=== PATIENT | male | born 1985 | race Caucasian/White ===

== ENCOUNTER → 2021-02-03 10:55 | Outpatient (CLI) | payer OTHER, MEDICAID, SELFPAY ==
[2021-02-03 11:57] LABS: Hematocrit 42.3 % (41-53); Hemoglobin 14.5 g/dL (13.5-17.5); Mean Corpuscular HGB Conc 34.4 % (30-36); Mean Corpuscular Hemoglobin 29.2 PG (26-34); Platelet Count 302 X10^3/uL (150-400); Red Blood Cell Count 4.97 X10^6/uL (4.5-5.9); Red Cell Distribution Width 13.5 % (11.6-14.8); White Blood Cell Count 9.1 X10^3/uL (4.5-11.0)
[2021-02-03 12:23] LABS: Blood Urea Nitrogen 17 mg/dL (9-20); Calcium 10.3 mg/dL (8.4-10.2); Carbon Dioxide 27 mmol/L (22-32); Chloride 103 mmol/L (98-107); Cholesterol 278 mg/dL (140-199); Estimated Glomerular Filt Rate > 60.0 mL/min (>60); Glucose 94 mg/dL (70-100); HDL Cholesterol 46 mg/dL (40-60); HEMOLYSIS < 15 (0-50); LDL Cholesterol Calculated 207 mg/dL (<100); Potassium 4.7 mmol/L (3.4-5.1); Sodium 141 mmol/L (137-145); Triglycerides 125 mg/dL (35-150)
[2021-02-03 12:37] LABS: Vitamin D 25 Hydroxy (D3) 28.7 ng/mL (30.0-100.0)
[2021-02-03 12:53] LABS: TSH w/ Reflex to FT4 1.75 uIU/mL (0.47-4.68)
[2021-02-03 13:10] LABS: Vitamin B12 675 pg/mL (239-931)
== END ==
PROVIDERS: PCP Student in an Organized Health Care Education/Training Program; Referring Provider Student in an Organized Health Care Education/Training Program; Visit Provider Student in an Organized Health Care Education/Training Program
DX: F32.9 Major depressive disorder, single episode, unspecified (principal); Z13.220 Encounter for screening for lipoid disorders; Z72.0 Tobacco use; E55.9 Vitamin D deficiency, unspecified
CPT/HCPCS: 36415; 80048; 80061; 82306; 82607; 84443; 85027

== ENCOUNTER 2021-04-03 14:03 | Emergency (ER) | payer OTHER, MEDICAID, SELFPAY ==
[2021-04-03 14:06] VITALS: BP 126/81; PULSE 81; RESP 18; TEMP 37.1; O2SAT 98
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
--- NOTE | 2021-04-03 15:56 | DI.CT.S_ITS ---
PROCEDURE: CT HEAD/BRAIN WO CON INDICATIONS: trauma TECHNIQUE: Noncontrast 4.5 mm thick angled axial sections acquired from the foramen magnum to the vertex, with coronal and sagittal reformats. For radiation dose reduction, the following was used: automated exposure control, adjustment of mA and/or kV according to patient size. COMPARISON: [facility], CT, CT CERVICAL SPINE WO CON, 04/03/2021, 16:00. [facility], CR, XR KNEE LT 3V, 04/03/2021, 14:11. [facility], CR, XR MANDIBLE MIN 4V, 04/03/2021, 14:11. FINDINGS: Image quality: Mild streak artifact can be seen through the skull base. CSF spaces: Basal cisterns are patent. No extra-axial fluid collections. Ventricles are normal in size and shape. Brain: No midline shift. No intracranial masses or hemorrhage. Silver-white matter interface is normal. Skull and face: Calvarium and visualized facial bones are intact, without suspicious lesions. Sinuses: Visualized sinuses and mastoids are clear. IMPRESSION: No acute intracranial process is seen. No acute intracranial hemorrhage is seen. Dictated by: Ahsan Vera M.D. on 04/03/2021 at 15:15 Approved by: Ahsan Vera M.D. on 04/03/2021 at 15:18
--- NOTE | 2021-04-03 15:56 | DI.CT.S_ITS ---
PROCEDURE: CT CERVICAL SPINE WO CON INDICATIONS: trauma TECHNIQUE: Noncontrast 3 mm thick sections acquired from the skull base to the T4 level. Sagittal and coronal reformats were then constructed. For radiation dose reduction, the following was used: automated exposure control, adjustment of mA and/or kV according to patient size. COMPARISON: [facility], CT, CT HEAD/BRAIN WO CON, 04/03/2021, 16:00. [facility], CR, XR KNEE LT 3V, 04/03/2021, 14:11. [facility], CR, XR MANDIBLE MIN 4V, 04/03/2021, 14:11. FINDINGS: Image quality: Excellent. Bones: No fractures or dislocations. Visualized superior ribs are intact. The visualized portions of the mandible are normal. No TMJ dislocation can be seen. Soft tissues: Prevertebral soft tissues are normal in thickness. No paravertebral hematomas. No apical pneumothoraces. IMPRESSION: Negative for fracture. Dictated by: Ahsan Vera M.D. on 04/03/2021 at 15:18 Approved by: Ahsan Vera M.D. on 04/03/2021 at 15:20
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
[2021-04-03] MEDS: KETOROLAC 30 MG/ML VIAL IM (18:03)
[2021-04-03] MEDS: diazePAM 5 MG TABLET PO (18:10)
== END 2021-04-03 18:31 | disposition home or self-care (01) ==
PROVIDERS: Emergency Provider Emergency Medicine; PCP Student in an Organized Health Care Education/Training Program
DX: S09.90XA Unspecified injury of head, initial encounter (principal); S02.2XXA Fracture of nasal bones, initial encounter for closed fracture; S16.1XXA Strain of muscle, fascia and tendon at neck level, initial encounter; V86.59XA Driver of other special all-terrain or other off-road motor vehicle injured in nontraffic accident, initial encounter
CPT/HCPCS: 70110; 70450; 72125; 73562; 96372; 99284; J1885

== ENCOUNTER → 2021-05-03 12:48 | Outpatient (CLI) | payer OTHER, MEDICAID, SELFPAY ==
--- NOTE | 2021-05-03 12:57 | DI.CT.S_ITS ---
PROCEDURE: CT HEAD/BRAIN WO CON INDICATIONS: Re-eval Concussion and nasal fracture TECHNIQUE: Noncontrast 4.5 mm thick angled axial sections acquired from the foramen magnum to the vertex, with coronal and sagittal reformats. For radiation dose reduction, the following was used: automated exposure control, adjustment of mA and/or kV according to patient size. COMPARISON: [facility], CR, XR MANDIBLE MIN 4V, 04/03/2021, 14:11. FINDINGS: Image quality: Excellent. CSF spaces: Basal cisterns are patent. No extra-axial fluid collections. Ventricles are normal in size and shape. Brain: No midline shift. No intracranial masses or hemorrhage. Silver-white matter interface is normal. 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 Remaining osseous structures intact. Sinuses: Visualized sinuses and mastoids are clear. IMPRESSION: No acute intracranial abnormality. 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 Dictated by: Edy Chan M.D. on 05/03/2021 at 13:00 Approved by: Edy Chan M.D. on 05/03/2021 at 13:02
== END ==
PROVIDERS: PCP Student in an Organized Health Care Education/Training Program; Referring Provider Student in an Organized Health Care Education/Training Program; Visit Provider Student in an Organized Health Care Education/Training Program
DX: S02.2XXK Fracture of nasal bones, subsequent encounter for fracture with nonunion (principal); S09.90XA Unspecified injury of head, initial encounter
CPT/HCPCS: 70450

== ENCOUNTER → 2021-05-11 07:22 | Outpatient (CLI) | payer OTHER, MEDICAID, SELFPAY ==
[2021-05-11 08:15] LABS: Cholesterol 173 mg/dL (140-199); HDL Cholesterol 37 mg/dL (40-60); LDL Cholesterol Calculated 114 mg/dL (<100); Triglycerides 110 mg/dL (35-150)
== END ==
PROVIDERS: PCP Student in an Organized Health Care Education/Training Program; Referring Provider Student in an Organized Health Care Education/Training Program; Visit Provider Student in an Organized Health Care Education/Training Program
DX: E78.00 Pure hypercholesterolemia, unspecified (principal)
CPT/HCPCS: 36415; 80061

== ENCOUNTER 2022-11-09 14:33 | Emergency (ER) | payer OTHER, MEDICAID, SELFPAY ==
[2022-11-09 15:18] VITALS: BP 111/76; PULSE 87; RESP 16; TEMP 36.9; O2SAT 96; BMI 23.3
--- NOTE | 2022-11-09 16:19 | ED_ITS ---
HPI - Dental/Oral <EVERETT Ireland - Last Filed: 11/09/22 16:47> General Chief complaint: Dental/Oral Stated complaint: bite into a burrito and half tooth fell out Time Seen by Provider: 11/09/22 15:59 Source: patient Mode of arrival: Ambulatory History of Present Illness HPI Narrative: This is a 37-year-old male who was eating a burrito this morning and states that his right further back lower molar broke today he thinks it was before or cracked and states that when he was chewing part of this tooth fell out. He endorses having pain but denies any severe stinging nerve pain. He states that he has been using clove oil on it today has helped. He states his dentist is closed for the weekend and he is concerned about pain for the weekend. Denies any discharge, denies any bleeding. Related Data Previous Rx's Medication Instructions Recorded valacyclovir 1 gram tablet 1,000 mg PO DAILY #90 tabs 03/13/22 sertraline 100 mg tablet 100 mg PO DAILY #90 tabs 08/07/22 bupropion HCl 150 mg tablet,12 hr 150 mg PO BID #180 ea 09/04/22 sustained-release hydroxyzine HCl 50 mg tablet 100 mg PO BEDTIME PRN insomnia 09/25/22 #180 tabs tramadol 50 mg tablet 50 mg PO BID PRN pain 3 weeks #42 10/25/22 tabs cyclobenzaprine 10 mg tablet 10 mg PO TID #42 tabs 10/31/22 rosuvastatin 20 mg tablet 20 mg PO QPM #90 tabs 11/05/22 benzocaine 10 % mucosal gel 1 applic mucous membrane BEDTIME 11/09/22 (Anbesol (benzocaine)) #9 grams hydrocodone 5 mg-acetaminophen 325 1 tab PO TID PRN pain #10 tabs 11/09/22 mg tablet Allergies Allergy/AdvReac Type Severity Reaction Status Date / Time Penicillins Allergy Depression Verified 11/09/22 15:22 Review of Systems <EVERETT Ireland - Last Filed: 11/09/22 16:47> Review of Systems ROS Unobtainable: All systems reviewed & are unremarkable except as noted in HPI and below Patient History <EVERETT Ireland - Last Filed: 11/09/22 16:47> Medical History ADHD Allergies Anxiety Chicken pox Chronic back pain Fractures Herpes (~2013) Knee pain Surgical History History of removal of skin mole Family History Mother Prediabetes Kidney stones Gout Breast cancer Arthritis Grandfather Diabetes mellitus History of heart disease Grandmother Diabetes mellitus Parkinson's disease Social History Smoking Status: Current every day smoker Smoking Status: Current every day smoker tobacco type: cigarettes alcohol intake frequency: 0-2 drinks per day Substance Use Type: does not use Exam <EVERETT Ireland - Last Filed: 11/09/22 16:47> Initial Vital Signs Initial Vital Signs: Vital Signs Temperature 98.5 F 11/09/22 15:18 Pulse Rate 87 11/09/22 15:18 Respiratory Rate 16 11/09/22 15:18 Blood Pressure 111/76 11/09/22 15:18 Pulse Oximetry 96 11/09/22 15:18 Oxygen Delivery Method Room Air 11/09/22 15:18 [facility] Head: normal to inspection Mouth: oral mucosae normal, lip normal, tongue normal, salivary ducts normal, oropharynx normal and moist mucous membranes Teeth and gingiva: gingiva normal and abnormal tooth or associated gingiva lower right first molar tender, enamel fractured and dentin fractured Neuro Cranial Nerves: CN's II-XI intact bilaterally, sense of smell intact, PERRL, accommodation normal, EOM intact bilaterally, facial strength normal and tongue midline <Renny Garvin DO - Last Filed: 11/09/22 16:54> Initial Vital Signs Initial Vital Signs: Vital Signs Temperature 98.5 F 11/09/22 15:18 Pulse Rate 87 11/09/22 15:18 Respiratory Rate 16 11/09/22 15:18 Blood Pressure 111/76 11/09/22 15:18 Pulse Oximetry 96 11/09/22 15:18 Oxygen Delivery Method Room Air 11/09/22 15:18 Course <EVERETT Ireland - Last Filed: 11/09/22 16:47> Orders Ordered: Discontinued Medications Hydrocodone Bitart/Acetaminophen (Hydrocodone/Acet 5/325 Tablet) 1 tab PO NOW ONE Stop: 11/09/22 16:14 Last Admin: 11/09/22 16:35 Dose: 1 tab Documented By: DEEDEE Ketorolac Tromethamine (Ketorolac 30 Mg/Ml Vial) 30 mg IM NOW ONE Stop: 11/09/22 16:14 Last Admin: 11/09/22 16:34 Dose: 30 mg Documented By: DEEDEE Vital Signs Vital signs: Vital Signs - 8 hr 11/09/22 15:18 11/09/22 16:43 Temperature 98.5 F Pulse Rate 87 78 Respiratory Rate 16 17 Blood Pressure 111/76 118/78 Pulse Oximetry 96 98 Oxygen Delivery Method Room Air Room Air <Renny Garvin DO - Last Filed: 11/09/22 16:54> Orders Ordered: Discontinued Medications Hydrocodone Bitart/Acetaminophen (Hydrocodone/Acet 5/325 Tablet) 1 tab PO NOW ONE Stop: 11/09/22 16:14 Last Admin: 11/09/22 16:35 Dose: 1 tab Documented By: DEEDEE Ketorolac Tromethamine (Ketorolac 30 Mg/Ml Vial) 30 mg IM NOW ONE Stop: 11/09/22 16:14 Last Admin: 11/09/22 16:34 Dose: 30 mg Documented By: DEEDEE Vital Signs Vital signs: Vital Signs - 8 hr 11/09/22 15:18 11/09/22 16:43 Temperature 98.5 F Pulse Rate 87 78 Respiratory Rate 16 17 Blood Pressure 111/76 118/78 Pulse Oximetry 96 98 Oxygen Delivery Method Room Air Room Air MDM - Dental/Oral <EVERETT Ireland - Last Filed: 11/09/22 16:47> MDM Narrative Medical decision making narrative: Chief Complaint: Broken tooth Multiple etiologies for patient's symptoms considered including, but not limited to: Fractured enamel, fracture dentin, dental decay, dental abscess, dental avulsion I have independently reviewed the patient's vital signs and nursing notes as well as prior records if available. Pertinent records include: On exam, patient has a fracture with a small piece of [place] missing, it is black behind and appears to be decayed. No gingival inflammation, edema, or evidence of abscess. Offered nerve block and cementing however patient opted to go with pain medication and clove oil, will follow-up at his dentist. Social considerations that may affect disposition: none Questions are addressed and there is agreement with the plan and for follow-up. Patient is appropriate for outpatient management. Discharge Plan Departure Patient Disposition: Home Clinical Impression: Pain, dental Fracture of tooth Qualifiers: Encounter type: initial encounter Fracture type: closed Qualified Code(s): S02.5XXA - Fracture of tooth (traumatic), initial encounter for closed fracture Instructions: DI for Dental Pain, Tooth Fracture Activity Restrictions/Additional Instructions: *You have been diagnosed with fracture tooth. Please get your dentist so that they can repair this for you. Another option is low-cost [facility]. Please use the pain pills as needed, take ibuprofen 800 mg starting tomorrow every 8 hours with food and water. Continue with clove oil, that was a good idea. Use a pain pill as needed in addition to these medicines. You can use topical and bizarre as well. I am sorry for your pain, I wish you the best of luck, hopefully this gets taken care of quickly. [facility] [address] [place] [address] Open ? Closes 5PM [facility] [address] [address], [place] [address] Closed from 12p-1p [facility] [place] [address], [place] [address] Appointments: [email or web address] *What to do: *Please continue to take your regular medications as directed. [x ] New medication prescriptions sent to your pharmacy: [ [facility]] [ ] New medication written as a paper prescription [ ] No new medications given *Please follow up with your primary care provider in 2-3 days, call for an appointment. Let them know you were seen in the Emergency Department and that we asked that you be seen for follow-up. We will electronically transmit a record of today's note if your PCP is in our system *If you do not have a primary care provider please contact [phone] to establish care with one of the [facility] primary care providers. *Return to Emergency Department if you should have any new, worsening, or concerning symptoms, such as [fever greater than 101F, chills, worsening pain, persistent vomiting or other bothersome symptoms]. Prescriptions: New Anbesol (benzocaine) 10 % gel 1 applic mucous membrane BEDTIME Qty: 9 0RF hydrocodone-acetaminophen 5-325 mg tablet 1 tab PO TID PRN (Reason: pain) Qty: 10 0RF No Action valacyclovir 1 gram tablet 1,000 mg PO DAILY Qty: 90 0RF bupropion HCl 150 mg tablet sustained-release 12 hr 150 mg PO BID Qty: 180 1RF hydroxyzine HCl 50 mg tablet 100 mg PO BEDTIME PRN (Reason: insomnia) Qty: 180 3RF cyclobenzaprine 10 mg tablet 10 mg PO TID Qty: 42 0RF rosuvastatin 20 mg tablet 20 mg PO QPM Qty: 90 3RF sertraline 100 mg tablet 100 mg PO DAILY Qty: 90 3RF tramadol 50 mg tablet 50 mg PO BID PRN (Reason: pain) 21 Days Qty: 42 0RF Referrals: Gage Lechuga MD [Primary Care Provider] - Stand Alone Forms: Patient Portal/API <Renny Garvin DO - Last Filed: 11/09/22 16:54> [facility]: Dr Garvin Co-Sign Statement: I was available for consultation during this patient's emergency department visit. This chart is signed by myself for administrative purposes only. I did not have direct contact with this patient during this visit. They were seen independently by the APC.
[2022-11-09] MEDS: KETOROLAC 30 MG/ML VIAL IM (16:34)
[2022-11-09] MEDS: HYDROCODONE/ACET 5/325 TABLET 1 TAB PO (16:35)
--- NOTE | 2022-11-09 16:40 | PC.NURSE ---
Right lower molar fracture
[2022-11-09 16:43] VITALS: BP 118/78; PULSE 78; RESP 17; O2SAT 98
== END 2022-11-09 16:44 | disposition home or self-care (01) ==
PROVIDERS: Emergency Provider Nurse Practitioner Critical Care Medicine; PCP Student in an Organized Health Care Education/Training Program
DX: S02.5XXA Fracture of tooth (traumatic), initial encounter for closed fracture (principal); X58.XXXA Exposure to other specified factors, initial encounter
CPT/HCPCS: 96372; 99283; J1885

== ENCOUNTER → 2022-11-13 10:45 | Outpatient (CLI) | payer OTHER, MEDICAID, SELFPAY ==
--- NOTE | 2022-11-13 10:48 | DI.RAD.S_ITS ---
PROCEDURE: XR HIP W PEL IF DONE RT 2V INDICATIONS: Right hip pain TECHNIQUE: AP pelvis with lateral view(s) of the right hip(s). COMPARISON: None. FINDINGS: Bones: No fractures or dislocations. Pelvic ring appears intact. No suspicious bony lesions. No significant joint space narrowing. Soft tissues: The visualized bowel gas pattern is normal. No suspicious soft tissue calcifications. IMPRESSION: Normal right hip radiographs. No significant degenerative change. Dictated by: Ronald Wei M.D. on 11/13/2022 at 14:53 Approved by: Ronald Wei M.D. on 11/13/2022 at 14:54
== END ==
PROVIDERS: PCP Student in an Organized Health Care Education/Training Program; Referring Provider Anesthesiology; Visit Provider Anesthesiology
DX: M25.551 Pain in right hip (principal); M54.16 Radiculopathy, lumbar region; M54.50 Low back pain, unspecified; M54.6 Pain in thoracic spine; G89.29 Other chronic pain
CPT/HCPCS: 73502; 99214

== ENCOUNTER → 2022-12-17 13:37 | Outpatient (CLI) | payer OTHER, MEDICAID, SELFPAY ==
--- NOTE | 2022-12-17 13:38 | DI.MRI.S_ITS ---
PROCEDURE: MR LUMBAR SPINE WO CON INDICATIONS: Lumbar radiculopathy s/p fall TECHNIQUE: Noncontrast sagittal T1 spin echo and T2 fast echo, sagittal STIR, and T2 fast spin echo through the lumbar spine. In cases with scoliosis, additional coronal T2 fast spin echo may be performed. COMPARISON: [facility], CR, XR LUMBAR SPINE 2 OR 3 VIEWS, 09/04/2022, 19:50. FINDINGS: Image quality: Excellent. Alignment and Curvature: There is normal bony alignment. Bone Marrow: Marrow is of normal overall signal. No acute vertebral body compression fractures. Spinal Cord: Conus medullaris terminates at the L1 level. Visualized cord demonstrates normal signal and size. Paraspinous Soft Tissues: No paravertebral masses. T12-L1: No significant disc bulge. The foramina and central canal are patent. L1-L2: No significant disc bulge. The foramina and central canal are patent. L2-L3: No significant disc bulge. The foramina and central canal are patent. L3-L4: No significant disc bulge. The foramina and central canal are patent. L4-L5: No significant disc bulge. The foramina and central canal are patent. L5-S1: Diffuse disc bulge with an annular tear and small central protrusion. The foramina and central canal are patent. IMPRESSION: 1. L5-S1 small annular tear with small central protrusion, otherwise no significant degenerative changes at this or other levels. 2. No acute traumatic abnormality. Dictated by: Zack Evans M.D. on 12/17/2022 at 14:19 Approved by: Zack Evans M.D. on 12/17/2022 at 14:23
== END ==
PROVIDERS: PCP Student in an Organized Health Care Education/Training Program; Referring Provider Anesthesiology; Visit Provider Anesthesiology
DX: G89.29 Other chronic pain (principal); M25.559 Pain in unspecified hip; M54.16 Radiculopathy, lumbar region; M54.9 Dorsalgia, unspecified; M51.37 Other intervertebral disc degeneration, lumbosacral region; M51.27 Other intervertebral disc displacement, lumbosacral region
CPT/HCPCS: 72148

== ENCOUNTER → 2023-02-26 13:28 | Outpatient (CLI) | payer OTHER, MEDICAID, SELFPAY ==
--- NOTE | 2023-02-26 13:29 | DI.MG.S_ITS ---
MALE BILATERAL DIGITAL DIAGNOSTIC MAMMOGRAM 3D/2D: 02/26/2023 CLINICAL: Baseline. Growing axillary lump with chest swelling. No prior exams were available for comparison. No significant masses, calcifications, or other findings are seen in either breast. No abnormality which corresponds with the palpable abnormality is seen. IMPRESSION: INCOMPLETE: NEEDS ADDITIONAL IMAGING EVALUATION Ultrasound is recommended. US will be performed and dictated separately. This exam was interpreted at Station ID: [id number]. NOTE: For mammograms, a report in lay terms will be sent to the patient. Approximately 15% of breast malignancies will not be visualized mammographically. In the management of a palpable breast mass, a negative mammogram must not discourage biopsy of a clinically suspicious lesion. Electronically Signed By: Zack Evans M.D. acr/:02/26/2023 14:50:16 ACR BI-RADS Category 0: Incomplete [id number]
--- NOTE | 2023-02-26 13:29 | DI.US.S_ITS ---
LIMITED ULTRASOUND OF LEFT BREAST AND AXILLA: 02/26/2023 CLINICAL: Palpable left axilla lump. Comparison is made to exam dated: 02/26/2023 mammogram - [facility]. Color flow and Doppler ultrasound of the left breast axilla were performed. No significant abnormalities were seen sonographically in the left axilla. No abnormality which corresponds with the palpable abnormality is seen. IMPRESSION: NEGATIVE There is no sonographic evidence of malignancy. There is no abnormality seen in the left breast to correspond with the palpable abnormality in the axilla, however, clinical followup is recommended. This exam was interpreted at Station ID: [id number]. Electronically Signed By: Zack Evans M.D. acr/:02/26/2023 14:52:54 letter sent: Clinical Evaluation Ultrasound BI-RADS: 1 Negative
== END ==
PROVIDERS: PCP Family Medicine; Referring Provider Family Medicine; Visit Provider Family Medicine
DX: R92.2 Inconclusive mammogram; N63.32 Unspecified lump in axillary tail of the left breast
CPT/HCPCS: 76882; 77066; G0279

== ENCOUNTER 2023-04-10 13:30 | Outpatient (RCR) | payer OTHER, MEDICAID, SELFPAY ==
--- NOTE | 2023-03-21 11:23 | PT.OIE ---
Current Diagnoses Other chronic pain (03/21/23) Radiculopathy, lumbar region (03/21/23) Lumbago with sciatica, right side (03/21/23) Pain in thoracic spine (03/21/23) Past Medical History (Last Reviewed 02/22/23 @ 08:44 by Royal Hansen DO) ADHD Allergies Anxiety Axillary adenitis Chicken pox Chronic back pain Fractures Herpes (~2013) Hip pain Knee pain Low back pain Lumbar radiculopathy Myofascial pain Thoracic back pain Past Surgical History (Last Reviewed 02/22/23 @ 08:44 by Royal Hansen DO) History of removal of skin mole Visit Care Team Role Provider Type Royal Hansen DO Attending Provider Physician Family Provider Primary Care Provider Referring Provider Specialty: Family Practice Address: [address] [place] [address], [facility] Email: [email or web address] Physical Therapy Initial Evaluation PT-OP-A Visit Information Start: 03/20/23 16:50 Freq: Status: Active Protocol: Document 03/21/23 11:23 AM (Rec: 03/21/23 12:55 AM [id number]) Out-Patient Physical Therapy Visit Information Visit Information Visit Type Initial Evaluation Visit Start Time 11:33 Visit Stop Time 12:15 Total Visit Minutes 43 Visit Number 1 Number of ALPINE PATROLLER Visits 0 Evaluation Information Evaluation Date 03/21/23 PT-OP-B Current Condition Start: 03/20/23 16:50 Freq: Status: Active Protocol: Document 03/21/23 11:23 AM (Rec: 03/21/23 12:55 AM [id number]) Current Condition History of Current Condition Onset Date 1 year ago, worsened in Aug Current Complaints Pt reports that pain is primarily at mid low back currently. History of Current Condition Pt reports pain is primarily at mid low back. Pt reports that he has radiating pain to R LE, with numbness occasionally at toes. Pt reports R LE symptoms are primarily at night. Pt reports that he has had low back pain for awhile, though in Aug he slipped on ice on the stairs and injured his back then. 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 He has difficulty working now, though works when able. 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 or being in the car is hard because of bouncing Functional Limitations- Recreation/ Pt unable to backpack hike Hobbies PT-OP-C Subjective Start: 03/20/23 16:50 Freq: Status: Active Protocol: Document 03/21/23 11:23 AM (Rec: 03/21/23 12:55 AM [id number]) OP-PT Subjective Patient Comments Patient Comments Pt reports symptoms have stayed about the same, though he does have exacerbation of symptoms with an lifting Patient Reported Progress Same Patient Questionnaires Lower Extremity Functional Scale LEFS Score 38 LEFS Impairment 40 to 59% Impaired (Score 32- 47) Oswestry Low Back Index Oswestry Score 21 Oswestry Impairment 20 to 39% Impaired (Score 20- 39) OP-PT Pain Assessment Pain Assessment Grid Paper Pain Assessment Grid Completed Yes Location Back Pain Location Details Central low back pain Intensity 5 Scale Used Numeric (0 - 10) Description Aching,Radiating,Spasm Description- Other 10/10, 6-8/10 typical Frequency Constant Radiating Location R lateral and posterior thigh. Symptoms go to his R toes ( numbness) rarely Pain Aggravating Factors ADL's,Activity,Standing, Sitting Pain Alleviating Factors Cold Other Pain Alleviating Factors Ice helps more than heat, walking helps Patient Stated Pain Goal To be able to return to work full-chelle and be able to backpack Home Pain Medication Use Pain Medications Used Yes: tylenol Home Pain Medication Frequency sometimes at night PT-OP-F Manual Assessment Start: 03/20/23 16:50 Freq: Status: Active Protocol: Document 03/21/23 11:23 AM (Rec: 03/21/23 12:55 AM [id number]) Manual Assessments Soft Tissue Assessment Soft Tissue Mobility Assessment Tenderness, stiffness at lumbar paraspinals; hamstring stiffness at 30 deg on 90/90 test PT-OP-G Mobility & Gait Start: 03/20/23 16:50 Freq: Status: Active Protocol: Document 03/21/23 11:23 AM (Rec: 03/21/23 12:55 AM [id number]) OP Gait Assessment Gait Gait Assistance Required: Independent Assistive Devices Assistive Device None Orthotic/Prosthetic Devices or Brace: No Gait Deviations General Gait Pattern Within Normal Limits PT-OP-H Neuro Start: 03/20/23 16:50 Freq: Status: Active Protocol: Document 03/21/23 11:23 AM (Rec: 03/21/23 12:55 AM [id number]) Sensation Evaluation Gross Sensation Gross Sensation WNL PT-OP-J Posture/Palpation/Skin Start: 03/20/23 16:50 Freq: Status: Active Protocol: Document 03/21/23 11:23 AM (Rec: 03/21/23 12:55 AM [id number]) Posture Evaluation Position Standing Evaluation View Posterior L-Spine Posture Flattened,Decreased Lordosis Palpation Assessment Location One Palpation Location lumbar paraspinals, QL Palpation Findings Soft Tissue Tightness,Muscle Guarding,Tenderness PT-OP-K Range of Motion Start: 03/20/23 16:50 Freq: Status: Active Protocol: Document 03/21/23 11:23 AM (Rec: 03/21/23 12:55 AM [id number]) Lumbar Spine Range of Motion Lumbar Spine Active Percentage Testing Position Standing Flexion 50 Extension 50 Rotation Left 50 Rotation Right 50 Lateral Flexion Left 50 Lateral Flexion Right 50 ROM Limitations Soft Tissue Tightness,Pain Comments Measurement from finger tips to floor, with knees extended Flexion: 12.5 inches R lateral flexion: 19.5 inches L lateral flexion: 18.5 inches Extensio: 20 degrees Knee Goniometric Range of Motion Knee Left Comments Hamstring 90/90: 30 deg Right Comments Hamstring 90/90: 30 deg PT-OP-L Special Tests Start: 03/20/23 16:50 Freq: Status: Active Protocol: Document 03/21/23 11:23 AM (Rec: 03/21/23 12:55 AM [id number]) Special Tests Lumbar Spine Special Tests Prone Press Up Test Results x10, Decreased stiffness and pain following Comments Supine lumbar flexion-no change PT-OP-M Strength Start: 03/20/23 16:50 Freq: Status: Active Protocol: Document 03/21/23 11:23 AM (Rec: 03/21/23 12:55 AM [id number]) Hip Strength Hip Manual Muscle Testing Left Flexion (L2) 4 Good Extension (S1) 4+ Good+ Abduction 4- Good- Adduction 4- Good- External Rotation 4- Good- Internal Rotation 3+ Fair+ Right Flexion (L2) 4 Good Extension (S1) 4+ Good+ Abduction 4- Good- Adduction 4- Good- External Rotation 4- Good- Internal Rotation 3+ Fair+ Comments IR testing produced R hip discomfort Knee Strength Knee Manual Muscle Testing Left Flexion (S2) 5 Normal Extension (L3) 5 Normal Right Flexion (S2) 5 Normal Extension (L3) 5 Normal PT-OP-Q Treatments Start: 03/20/23 16:50 Freq: Status: Active Protocol: Document 03/21/23 11:23 AM (Rec: 03/21/23 12:57 AM [id number]) Therapeutic Exercises Prone Exercises 1 Prone Exercise Name Prone press-up Reps/Minutes x10 Standing Exercises 1 Standing Exercise Name Hamstring stretch Side bilateral Reps/Minutes x30 sec Other Exercises 1 Other Exercise Name Kneeling hip flexor stretch Side bilateral Reps/Minutes 30 sec ea PT-OP-T Assessment and Plan Start: 03/20/23 16:50 Freq: Status: Active Protocol: Document 03/21/23 11:23 AM (Rec: 03/21/23 12:55 AM [id number]) Physical Therapy Assessment Rehab Potential Rehabilitation Potential Excellent Evaluation Complexity Number of Personal Factors/Comorbidities 1-2 Number of Body Systems Impaired 1-2 Clinical Presentation at Evaluation Stable Impairments Impairments Activity Tolerance,Functional Activities,Functional Mobility ,Gait,Pain,Posture,ROM,Soft Tissue Mobility,Strength Goals Seven Impairment Radicular symptoms Impairment Pt with radicular symptoms from lateral hip to toes. Short Term Goal (STG) Pt without symptoms below knee . STG Duration 3 weeks Insurance Defense Attorney Goal (LTG) Pt with out radicular symptoms at R LE LTG Duration 6 weeks Six Impairment Sleep deficits Impairment Pt reports difficulty with sleep secondary to R radicular symptoms Insurance Defense Attorney Goal (LTG) Pt able to sleep without disruption secondary to pain. LTG Duration 6 weeks Five Impairment Trunk mobility Impairment Pt demonstates trunk mobility restrictions, restricted by 50 % in each direction. Short Term Goal (STG) Pt able to demonstrate improved trunk mobility, restricted 25% or less in each direction. STG Duration 3 weeks Insurance Defense Attorney Goal (LTG) Pt with full functional trunk mobility. LTG Duration 6 weeks Four Impairment Work restrictions Impairment Pt with difficulty working secondary to pain. Short Term Goal (STG) Pt able to participate in 50% of typical work tasks, without modification secondary to pain. STG Duration 3 weeks Senior Care Goal (LTG) Pt able to participate in 75% of work tasks without modification secondary to pain . LTG Duration 6 weeks Three Impairment HEP Impairment Pt unsure of appropriate exercises to reduce pain. Insurance Defense Attorney Goal (LTG) Pt independent with HEP LTG Duration 6 weeks Two Impairment LEFS score Impairment Pt scored 38/80 on LEFS Senior Care Goal (LTG) Pt will score 60/80 on LEFS LTG Duration 6 weeks One Impairment Pain Impairment Pt with reported pain at 10/10 at worst. Short Term Goal (STG) Pt with reported pain at 5/10 at worst. STG Duration 3 weeks Senior Care Goal (LTG) Pt with reported pain at 2/10 at worst LTG Duration 6 weeks Assessment Summary Assessment Feroz Marin presents to PT with history of low back pain, which worsened in 08/2022. Pt with history of R radicular symptoms, that are typically at night. Pt with difficulty working and with recreational activities secondary to persistent pain. Pt demonstrates 50% restriction in trunk mobility in all directions. Pt demonstrated reduction of pain and improved mobility following prone press-ups today. Pt without change in symptoms with lumbar flexion in supine. Pt muscle retrictions at hamstrings and hip flexors. Pt demonstrates tenderness at [place] lumbar paraspinals and QL with palpation. Pt educated on seated posture with lumbar support at all times. Pt without increase in pain with HEP given today, though encouraged to avoid painful ranges and stop exercise if peripheral symptoms worsen with exercises. Pt would benefit from continued PT to progress trunk mobility and strength, to improve tolerance to functional and recreational tasks. Physical Therapy Plan Frequency and Duration Frequency of Treatment 2x/Week Duration of treatment (weeks) 6 Plan of Care Start Date 03/21/23 Plan of Care End Date 05/02/23 Therapeutic Interventions Therapeutic Interventions Balance Training,Gait Training ,Home Exercise Program,Joint Mobilizations,Manual Therapy, Neuromuscular Re-education, Patient/Caregiver Education, Self-Care/Home Management,Soft Tissue Mobilization,Taping, Therapeutic Activities, Therapeutic Exercises Modalities Cold Pack/Ice Massage,Electric Stimulation,Hot Packs, Ultrasound Next Visit Focus/Plan Next Note Type Treatment Note Next Visit Plan Progress trunk mobility. Add manual techniques to decrease soft tissue restrictions. Progress towards functional strengthening as tolerated
--- NOTE | 2023-03-26 09:48 | PT.OTN ---
Current Diagnoses Other chronic pain (03/26/23) Radiculopathy, lumbar region (03/26/23) Lumbago with sciatica, right side (03/26/23) Pain in thoracic spine (03/26/23) Physical Therapy Treatment Note PT-OP-A Visit Information Start: 03/20/23 16:50 Freq: Status: Active Protocol: Document 03/26/23 09:48 AM (Rec: 03/26/23 13:33 AM [id number]) Out-Patient Physical Therapy Visit Information Visit Information Visit Type Treatment Note Visit Start Time 09:48 Visit Stop Time 10:28 Total Visit Minutes 40 Visit Number 2 Number of PR[employer]ING [employer] CLOTH TENDER Visits 0 PT-OP-B Current Condition Start: 03/20/23 16:50 Freq: Status: Active Protocol: Document 03/26/23 09:48 AM (Rec: 03/26/23 13:33 AM [id number]) Current Condition History of Current Condition Onset Date 1 year ago, worsened in Aug Current Complaints Pt reports that pain is primarily at mid low back currently. History of Current Condition Pt reports pain is primarily at mid low back. Pt reports that he has radiating pain to R LE, with numbness occasionally at toes. Pt reports R LE symptoms are primarily at night. Pt reports that he has had low back pain for awhile, though in Aug he slipped on ice on the stairs and injured his back then. Prior Treatments and Tests Herniated disc on MRI, trigger point injections in September (no help) Future Testing and Treatments Planned F/u with referring provider post-PT PT-OP-C Subjective Start: 03/20/23 16:50 Freq: Status: Active Protocol: Document 03/26/23 09:48 AM (Rec: 03/26/23 13:33 AM [id number]) OP-PT Subjective Patient Comments Patient Comments Pt reports My back is pretty good today. Pt reports pain at 2-3/10. Pt reports that his night symptoms have improved and he is no longer having pain into his glute. PT-OP-F Manual Assessment Start: 03/20/23 16:50 Freq: Status: Active Protocol: Document 03/21/23 11:23 AM (Rec: 03/21/23 12:55 AM [id number]) Manual Assessments Soft Tissue Assessment Soft Tissue Mobility Assessment Tenderness, stiffness at lumbar paraspinals; hamstring stiffness at 30 deg on 90/90 test PT-OP-G Mobility & Gait Start: 03/20/23 16:50 Freq: Status: Active Protocol: Document 03/21/23 11:23 AM (Rec: 03/21/23 12:55 AM [id number]) OP Gait Assessment Gait Gait Assistance Required: Independent Assistive Devices Assistive Device None Orthotic/Prosthetic Devices or Brace: No Gait Deviations General Gait Pattern Within Normal Limits PT-OP-H Neuro Start: 03/20/23 16:50 Freq: Status: Active Protocol: Document 03/21/23 11:23 AM (Rec: 03/21/23 12:55 AM [id number]) Sensation Evaluation Gross Sensation Gross Sensation WNL PT-OP-J Posture/Palpation/Skin Start: 03/20/23 16:50 Freq: Status: Active Protocol: Document 03/21/23 11:23 AM (Rec: 03/21/23 12:55 AM [id number]) Posture Evaluation Position Standing Evaluation View Posterior L-Spine Posture Flattened,Decreased Lordosis Palpation Assessment Location One Palpation Location lumbar paraspinals, QL Palpation Findings Soft Tissue Tightness,Muscle Guarding,Tenderness PT-OP-K Range of Motion Start: 03/20/23 16:50 Freq: Status: Active Protocol: Document 03/21/23 11:23 AM (Rec: 03/21/23 12:55 AM [id number]) Lumbar Spine Range of Motion Lumbar Spine Active Percentage Testing Position Standing Flexion 50 Extension 50 Rotation Left 50 Rotation Right 50 Lateral Flexion Left 50 Lateral Flexion Right 50 ROM Limitations Soft Tissue Tightness,Pain Comments Measurement from finger tips to floor, with knees extended Flexion: 12.5 inches R lateral flexion: 19.5 inches L lateral flexion: 18.5 inches Extensio: 20 degrees Knee Goniometric Range of Motion Knee Left Comments Hamstring 90/90: 30 deg Right Comments Hamstring 90/90: 30 deg PT-OP-L Special Tests Start: 03/20/23 16:50 Freq: Status: Active Protocol: Document 03/21/23 11:23 AM (Rec: 03/21/23 12:55 AM [id number]) Special Tests Lumbar Spine Special Tests Prone Press Up Test Results x10, Decreased stiffness and pain following Comments Supine lumbar flexion-no change PT-OP-M Strength Start: 03/20/23 16:50 Freq: Status: Active Protocol: Document 03/21/23 11:23 AM (Rec: 03/21/23 12:55 AM [id number]) Hip Strength Hip Manual Muscle Testing Left Flexion (L2) 4 Good Extension (S1) 4+ Good+ Abduction 4- Good- Adduction 4- Good- External Rotation 4- Good- Internal Rotation 3+ Fair+ Right Flexion (L2) 4 Good Extension (S1) 4+ Good+ Abduction 4- Good- Adduction 4- Good- External Rotation 4- Good- Internal Rotation 3+ Fair+ Comments IR testing produced R hip discomfort Knee Strength Knee Manual Muscle Testing Left Flexion (S2) 5 Normal Extension (L3) 5 Normal Right Flexion (S2) 5 Normal Extension (L3) 5 Normal PT-OP-Q Treatments Start: 03/20/23 16:50 Freq: Status: Active Protocol: Document 03/26/23 09:48 AM (Rec: 03/26/23 13:33 AM [id number]) Therapeutic Exercises Supine Exercises 1 Supine Exercise Name LTR Side bilateral Reps/Minutes x1 min Comments added to HEP Prone Exercises 2 Prone Exercise Name [place] Reps/Minutes x10 Comments added to HEP 1 Prone Exercise Name Prone press-up Reps/Minutes 2x10 Sitting Exercises 2 Sitting Exercise Name Lat pull down Side bilateral Resistance 60# Equipment Used machine Reps/Minutes 2x10 1 Sitting Exercise Name Seated row Side bilateral Resistance 60# Equipment Used machine Reps/Minutes 2x10 Standing Exercises 2 Standing Exercise Name Cable trunk isometric Side bilateral Resistance 20# Equipment Used cable Reps/Minutes 3x5 steps each direction Comments Sideways and fwd/back Other Exercises 1 Other Exercise Name Kneeling hip flexor stretch Side bilateral Equipment Used knee on blue foam for comfort Reps/Minutes 1 min ea side Manual Therapy Treatment Soft Tissue Mobilization 1 Body Location Low back paraspinals and QL Mobilization Type Myofascial Release Intensity/Depth Deep Body Position Prone Comments L QL more tender than R PT-OP-T Assessment and Plan Start: 03/20/23 16:50 Freq: Status: Active Protocol: Document 03/26/23 09:48 AM (Rec: 03/26/23 13:33 AM [id number]) Physical Therapy Assessment Impairments Impairments Activity Tolerance,Functional Activities,Functional Mobility ,Gait,Pain,Posture,ROM,Soft Tissue Mobility,Strength Goals Seven Impairment Radicular symptoms Impairment Pt with radicular symptoms from lateral hip to toes. Short Term Goal (STG) Pt without symptoms below knee . STG Duration 3 weeks Field Supervisor [employer] Goal (LTG) Pt with out radicular symptoms at R LE LTG Duration 6 weeks Six Impairment Sleep deficits Impairment Pt reports difficulty with sleep secondary to R radicular symptoms Care Home Goal (LTG) Pt able to sleep without disruption secondary to pain. LTG Duration 6 weeks Five Impairment Trunk mobility Impairment Pt demonstates trunk mobility restrictions, restricted by 50 % in each direction. Short Term Goal (STG) Pt able to demonstrate improved trunk mobility, restricted 25% or less in each direction. STG Duration 3 weeks Care Home Goal (LTG) Pt with full functional trunk mobility. LTG Duration 6 weeks Four Impairment Work restrictions Impairment Pt with difficulty working secondary to pain. Short Term Goal (STG) Pt able to participate in 50% of typical work tasks, without modification secondary to pain. STG Duration 3 weeks Care Home Goal (LTG) Pt able to participate in 75% of work tasks without modification secondary to pain . LTG Duration 6 weeks Three Impairment HEP Impairment Pt unsure of appropriate exercises to reduce pain. Care Home Goal (LTG) Pt independent with HEP LTG Duration 6 weeks Two Impairment LEFS score Impairment Pt scored 38/80 on LEFS Care Home Goal (LTG) Pt will score 60/80 on LEFS LTG Duration 6 weeks One Impairment Pain Impairment Pt with reported pain at 10/10 at worst. Short Term Goal (STG) Pt with reported pain at 5/10 at worst. STG Duration 3 weeks Care Home Goal (LTG) Pt with reported pain at 2/10 at worst LTG Duration 6 weeks Progress Towards Goals Progress Towards Goals Progressing Toward Goals Assessment Summary Assessment Pt tolerated tx session well today without increase in symptoms. Pt with trigger points along L QL with STM. Pt demonstrates improving lumbar extension with mobility. Pt tolerated strengthening well, with cues for trunk stabilization throughout. Pt would benefit form continued PT to progress trunk strength and mobility as tolerated. Physical Therapy Plan Frequency and Duration Frequency of Treatment 2x/Week Duration of treatment (weeks) 6 Plan of Care Start Date 03/21/23 Plan of Care End Date 05/02/23 Therapeutic Interventions Therapeutic Interventions Balance Training,Gait Training ,Home Exercise Program,Joint Mobilizations,Manual Therapy, Neuromuscular Re-education, Patient/Caregiver Education, Self-Care/Home Management,Soft Tissue Mobilization,Taping, Therapeutic Activities, Therapeutic Exercises Modalities Cold Pack/Ice Massage,Electric Stimulation,Hot Packs, Ultrasound Next Visit Focus/Plan Next Note Type Treatment Note Next Visit Plan Progress trunk mobility and functional strength as tolerated, add deadlifts, weighted squats, overhead press as tolerated
--- NOTE | 2023-04-08 10:21 | PT-OP ANOTE ---
Pt did not show for appt. Mother answered phone when called. Mom reported was a busy morning and lost track time. She wanted reschedule appt today and will call back to do so, confirmed next appt on 04/10.
--- NOTE | 2023-04-10 13:33 | PT.OTN ---
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 History of Current Condition Pt reports pain is primarily at mid low back. Pt reports that he has radiating pain to R LE, with numbness occasionally at toes. Pt reports R LE symptoms are primarily at night. Pt reports that he has had low back pain for awhile, though in Aug he slipped on ice on the stairs and injured his back then. Prior Treatments and Tests Herniated disc on MRI, trigger point injections in September (no help) Future Testing and Treatments Planned F/u with referring provider post-PT PT-OP-C Subjective Start: 03/20/23 16:50 Freq: Status: Active Protocol: Document 04/10/23 13:33 AM (Rec: 04/10/23 13:39 AM [id number]) OP-PT Subjective Patient Comments Patient Comments Pt reports pain is about the same it comes and goes. Pt denies pain down his leg. Pt reports pain at 5/10 today. Pt reports pain increasing to 9/ 10 at the worst in the morning or with too much strain at work. PT-OP-F Manual Assessment Start: 03/20/23 16:50 Freq: Status: Active Protocol: Document 03/21/23 11:23 AM (Rec: 03/21/23 12:55 AM [id number]) Manual Assessments Soft Tissue Assessment Soft Tissue Mobility Assessment Tenderness, stiffness at lumbar paraspinals; hamstring stiffness at 30 deg on 90/90 test PT-OP-G Mobility & Gait Start: 03/20/23 16:50 Freq: Status: Active Protocol: Document 03/21/23 11:23 AM (Rec: 03/21/23 12:55 AM [id number]) OP Gait Assessment Gait Gait Assistance Required: Independent Assistive Devices Assistive Device None Orthotic/Prosthetic Devices or Brace: No Gait Deviations General Gait Pattern Within Normal Limits PT-OP-H Neuro Start: 03/20/23 16:50 Freq: Status: Active Protocol: Document 03/21/23 11:23 AM (Rec: 03/21/23 12:55 AM [id number]) Sensation Evaluation Gross Sensation Gross Sensation WNL PT-OP-J Posture/Palpation/Skin Start: 03/20/23 16:50 Freq: Status: Active Protocol: Document 03/21/23 11:23 AM (Rec: 03/21/23 12:55 AM [id number]) Posture Evaluation Position Standing Evaluation View Posterior L-Spine Posture Flattened,Decreased Lordosis Palpation Assessment Location One Palpation Location lumbar paraspinals, QL Palpation Findings Soft Tissue Tightness,Muscle Guarding,Tenderness PT-OP-K Range of Motion Start: 03/20/23 16:50 Freq: Status: Active Protocol: Document 04/10/23 13:33 AM (Rec: 04/10/23 13:42 AM [id number]) Lumbar Spine Range of Motion Lumbar Spine Active Percentage Flexion 50 Extension 25 Rotation Left 50 Rotation Right 50 Lateral Flexion Left 50 Lateral Flexion Right 50 Comments Flexion: 9 inches R lateral flexion : 20 inches L lateral flexion: 18.5 inches Extension: 30 deg PT-OP-L Special Tests Start: 03/20/23 16:50 Freq: Status: Active Protocol: Document 03/21/23 11:23 AM (Rec: 03/21/23 12:55 AM [id number]) Special Tests Lumbar Spine Special Tests Prone Press Up Test Results x10, Decreased stiffness and pain following Comments Supine lumbar flexion-no change PT-OP-M Strength Start: 03/20/23 16:50 Freq: Status: Active Protocol: Document 03/21/23 11:23 AM (Rec: 03/21/23 12:55 AM [id number]) Hip Strength Hip Manual Muscle Testing Left Flexion (L2) 4 Good Extension (S1) 4+ Good+ Abduction 4- Good- Adduction 4- Good- External Rotation 4- Good- Internal Rotation 3+ Fair+ Right Flexion (L2) 4 Good Extension (S1) 4+ Good+ Abduction 4- Good- Adduction 4- Good- External Rotation 4- Good- Internal Rotation 3+ Fair+ Comments IR testing produced R hip discomfort Knee Strength Knee Manual Muscle Testing Left Flexion (S2) 5 Normal Extension (L3) 5 Normal Right Flexion (S2) 5 Normal Extension (L3) 5 Normal PT-OP-Q Treatments Start: 03/20/23 16:50 Freq: Status: Active Protocol: Document 04/10/23 13:33 AM (Rec: 04/10/23 15:14 AM [id number]) Therapeutic Exercises Supine Exercises 1 Supine Exercise Name LTR Side bilateral Reps/Minutes x1 min Comments added to HEP Prone Exercises 1 Prone Exercise Name Prone press-up Reps/Minutes 2x10 Standing Exercises QL stretch Standing Exercise Name QL stretch Reps/Minutes 2x20 sec Comments Stand with L hip touching wall and lean away from wall with arm overhead Other Exercises 1 Other Exercise Name Kneeling hip flexor stretch Side bilateral Equipment Used knee on blue foam for comfort Reps/Minutes 1 min ea side Comments With L arm overhead for QL stretch Manual Therapy Treatment Soft Tissue Mobilization 1 Body Location Low back paraspinals and L QL Mobilization Type Myofascial Release Intensity/Depth Deep Body Position Prone Comments L QL more tender than R Showed pt self QL massage for home with tennis ball against wall PT-OP-T Assessment and Plan Start: 03/20/23 16:50 Freq: Status: Active Protocol: Document 04/10/23 13:33 AM (Rec: 04/10/23 13:39 AM [id number]) Physical Therapy Assessment Impairments Impairments Activity Tolerance,Functional Activities,Functional Mobility ,Gait,Pain,Posture,ROM,Soft Tissue Mobility,Strength Goals Seven Impairment Radicular symptoms Impairment Pt with radicular symptoms from lateral hip to toes. Short Term Goal (STG) Pt without symptoms below knee . GOAL MET on 04/10/23. Pt no longer having LE symptoms STG Duration 3 weeks Correction Goal (LTG) Pt with out radicular symptoms at R LE GOAL MET on 04/10/23, Pt no longer having radiular symptoms LTG Duration 6 weeks Six Impairment Sleep deficits Impairment Pt reports difficulty with sleep secondary to R radicular symptoms Water Meter Reader Goal (LTG) Pt able to sleep without disruption secondary to pain. LTG Duration 6 weeks Five Impairment Trunk mobility Impairment Pt demonstates trunk mobility restrictions, restricted by 50 % in each direction. Short Term Goal (STG) Pt able to demonstrate improved trunk mobility, restricted 25% or less in each direction. Partially MET- 04/10/23. Pt with improve lumbar flexion and extension mobility. Lateral flexion continues to be stiff with pain with R lateral flexion. STG Duration 3 weeks Correction Goal (LTG) Pt with full functional trunk mobility. LTG Duration 6 weeks Four Impairment Work restrictions Impairment Pt with difficulty working secondary to pain. Short Term Goal (STG) Pt able to participate in 50% of typical work tasks, without modification secondary to pain. GOAL MET 04/10/23 STG Duration 3 weeks Water Meter Reader Goal (LTG) Pt able to participate in 75% of work tasks without modification secondary to pain . LTG Duration 6 weeks Three Impairment HEP Impairment Pt unsure of appropriate exercises to reduce pain. Water Meter Reader Goal (LTG) Pt independent with HEP LTG Duration 6 weeks Two Impairment LEFS score Impairment Pt scored 38/80 on LEFS Correction Goal (LTG) Pt will score 60/80 on LEFS LTG Duration 6 weeks One Impairment Pain Impairment Pt with reported pain at 10/10 at worst. Short Term Goal (STG) Pt with reported pain at 5/10 at worst. GOAL UNMET 04/10/23: Pt reports pain at 9/10 at the worst. Intermittent STG Duration 3 weeks Water Meter Reader Goal (LTG) Pt with reported pain at 2/10 at worst LTG Duration 6 weeks Progress Towards Goals Progress Towards Goals Progressing Toward Goals Assessment Summary Assessment Pt continues to demonstrate trigger points at L QL. Pt able to tolerate self QL stretching following STM today , which were added to HEP. Pt also given QL self-massage with ball. Pt with improved lumbar flexion and extension mobility since start of PT. Pt demonstrates continued stiffness with lateral flexion . Pt would benefit from continued PT to decrease QL stiffness to reduce pain and improve functional mobility. Physical Therapy Plan Frequency and Duration Frequency of Treatment 2x/Week Duration of treatment (weeks) 6 Plan of Care Start Date 03/21/23 Plan of Care End Date 05/02/23 Therapeutic Interventions Therapeutic Interventions Balance Training,Gait Training ,Home Exercise Program,Joint Mobilizations,Manual Therapy, Neuromuscular Re-education, Patient/Caregiver Education, Self-Care/Home Management,Soft Tissue Mobilization,Taping, Therapeutic Activities, Therapeutic Exercises Modalities Cold Pack/Ice Massage,Electric Stimulation,Hot Packs, Ultrasound Next Visit Focus/Plan Next Note Type Treatment Note Next Visit Plan Progress trunk mobility and functional strength as tolerated, add deadlifts, weighted squats, overhead press as tolerated
--- NOTE | 2023-05-08 17:05 | PT.OPDS ---
Current Diagnoses Other chronic pain (04/10/23) Radiculopathy, lumbar region (04/10/23) Lumbago with sciatica, right side (04/10/23) Pain in thoracic spine (04/10/23) Visit Care Team Role Provider Type Royal Hansen DO Attending Provider Physician Family Provider Primary Care Provider Referring Provider Specialty: [facility] Address: [address] [place] [address], [facility] Email: [email or web address] Visit Number Visit Number 3 Discharge Summary PT-OP-B Current Condition Start: 03/20/23 16:50 Freq: Status: Active Protocol: Document 04/10/23 13:33 AM (Rec: 04/10/23 15:10 AM [id number]) Current Condition History of Current Condition Onset Date 1 year ago, worsened in Aug Current Complaints Pt reports that pain is primarily at mid low back currently. History of Current Condition Pt reports pain is primarily at mid low back. Pt reports that he has radiating pain to R LE, with numbness occasionally at toes. Pt reports R LE symptoms are primarily at night. Pt reports that he has had low back pain for awhile, though in Aug he slipped on ice on the stairs and injured his back then. Prior Treatments and Tests Herniated disc on MRI, trigger point injections in September (no help) Future Testing and Treatments Planned F/u with referring provider post-PT PT-OP-C Subjective Start: 03/20/23 16:50 Freq: Status: Active Protocol: Document 05/08/23 17:05 AM (Rec: 05/08/23 17:07 AM [id number]) OP-PT Subjective Patient Comments Patient Comments PT called pt to check in with pt regarding low back pain since previous session. Patient Reported Progress Same PT-OP-F Manual Assessment Start: 03/20/23 16:50 Freq: Status: Active Protocol: Document 03/21/23 11:23 AM (Rec: 03/21/23 12:55 AM [id number]) Manual Assessments Soft Tissue Assessment Soft Tissue Mobility Assessment Tenderness, stiffness at lumbar paraspinals; hamstring stiffness at 30 deg on 90/90 test PT-OP-G Mobility & Gait Start: 03/20/23 16:50 Freq: Status: Active Protocol: Document 03/21/23 11:23 AM (Rec: 03/21/23 12:55 AM [id number]) OP Gait Assessment Gait Gait Assistance Required: Independent Assistive Devices Assistive Device None Orthotic/Prosthetic Devices or Brace: No Gait Deviations General Gait Pattern Within Normal Limits PT-OP-H Neuro Start: 03/20/23 16:50 Freq: Status: Active Protocol: Document 03/21/23 11:23 AM (Rec: 03/21/23 12:55 AM [id number]) Sensation Evaluation Gross Sensation Gross Sensation WNL PT-OP-J Posture/Palpation/Skin Start: 03/20/23 16:50 Freq: Status: Active Protocol: Document 03/21/23 11:23 AM (Rec: 03/21/23 12:55 AM [id number]) Posture Evaluation Position Standing Evaluation View Posterior L-Spine Posture Flattened,Decreased Lordosis Palpation Assessment Location One Palpation Location lumbar paraspinals, QL Palpation Findings Soft Tissue Tightness,Muscle Guarding,Tenderness PT-OP-K Range of Motion Start: 03/20/23 16:50 Freq: Status: Active Protocol: Document 04/10/23 13:33 AM (Rec: 04/10/23 13:42 AM [id number]) Lumbar Spine Range of Motion Lumbar Spine Active Percentage Flexion 50 Extension 25 Rotation Left 50 Rotation Right 50 Lateral Flexion Left 50 Lateral Flexion Right 50 Comments Flexion: 9 inches R lateral flexion : 20 inches L lateral flexion: 18.5 inches Extension: 30 deg PT-OP-L Special Tests Start: 03/20/23 16:50 Freq: Status: Active Protocol: Document 03/21/23 11:23 AM (Rec: 03/21/23 12:55 AM [id number]) Special Tests Lumbar Spine Special Tests Prone Press Up Test Results x10, Decreased stiffness and pain following Comments Supine lumbar flexion-no change PT-OP-M Strength Start: 03/20/23 16:50 Freq: Status: Active Protocol: Document 03/21/23 11:23 AM (Rec: 03/21/23 12:55 AM [id number]) Hip Strength Hip Manual Muscle Testing Left Flexion (L2) 4 Good Extension (S1) 4+ Good+ Abduction 4- Good- Adduction 4- Good- External Rotation 4- Good- Internal Rotation 3+ Fair+ Right Flexion (L2) 4 Good Extension (S1) 4+ Good+ Abduction 4- Good- Adduction 4- Good- External Rotation 4- Good- Internal Rotation 3+ Fair+ Comments IR testing produced R hip discomfort Knee Strength Knee Manual Muscle Testing Left Flexion (S2) 5 Normal Extension (L3) 5 Normal Right Flexion (S2) 5 Normal Extension (L3) 5 Normal PT-OP-T Assessment and Plan Start: 03/20/23 16:50 Freq: Status: Active Protocol: Document 05/08/23 17:05 AM (Rec: 05/08/23 17:07 AM [id number]) Physical Therapy Plan Discharge Physical Therapy Discharge Reasons Plateau in Progress Discharge Comments Pt reports that he will be having low back surgery. Pt's LE symptoms had stopped when last seen in PT. Pt with no further questions or concerns at this time, though will f/u if needed after surgery.
== END 2023-05-13 11:50 | disposition home or self-care (01) ==
LOC: PHYS 13:30
PROVIDERS: Family Provider Family Medicine; PCP Family Medicine; Referring Provider Family Medicine; Visit Provider Family Medicine
DX: M54.41 Lumbago with sciatica, right side (principal); G89.29 Other chronic pain; M54.6 Pain in thoracic spine; M54.16 Radiculopathy, lumbar region
CPT/HCPCS: 97110; 97140; 97161

== ENCOUNTER 2023-09-07 17:54 | Emergency (ER) | payer OTHER, MEDICAID, SELFPAY ==
[2023-09-07 18:04] VITALS: BP 131/72; PULSE 85; RESP 17; TEMP 36.6; O2SAT 99; BMI 21.2
--- NOTE | 2023-09-07 18:48 | ED.BACK ---
HPI - Back Pain/Injury <Isidra Stark PA-C - Last Filed: 09/07/23 18:54> General Chief Complaint: Back Pain/Injury Stated Complaint: back pain Time Seen by Provider: 09/07/23 18:23 Source: patient History of Present Illness HPI Narrative: Patient is a 37-year-old male who presents with acute exacerbation of chronic low back pain. He has been attending physical therapy and receiving trigger point injections over the past 9 months and is currently stable, doing his physical therapy exercises at home. Yesterday he was doing his exercises when his 4-year-old twins jumped on his back, to ride like a horse. Since then, he has been having excruciating low back pain including numbness in his right leg. He denies loss of bowel or bladder control, saddle anesthesia, leg weakness. He is able to ambulate. He tried taking his regularly prescribed Tylenol No. [address] Hansen and methocarbamol (500mg) last night and today but he is still very uncomfortable. He went to the walk-in clinic and they referred him for x-rays but were unable to prescribe any pain relief. November 2022: Lumbar MRI IMPRESSION: 1. L5-S1 small annular tear with small central protrusion, otherwise no significant degenerative changes at this or other levels. 2. No acute traumatic abnormality. Related Data Previous Rx's Medication Instructions Recorded rosuvastatin 20 mg tablet 20 mg PO QPM #90 tabs 11/05/22 valacyclovir 1 gram tablet 1,000 mg PO DAILY #90 tabs 04/03/23 hydroxyzine HCl 50 mg tablet 100 mg (2 x 50 mg) PO BEDTIME PRN 06/25/23 insomnia #180 tabs acetaminophen 300 mg-codeine 30 mg 1 tab PO BID PRN pain #60 tabs 07/12/23 tablet oxaprozin 600 mg tablet 600 mg PO DAILY #30 tabs 07/12/23 pregabalin 25 mg capsule (Lyrica) 25 mg PO BID #60 caps 07/12/23 sildenafil 100 mg tablet 100 mg PO DAILY PRN sexual 07/12/23 activity #30 tabs methocarbamol 500 mg tablet 500 mg PO BID #60 tabs 08/13/23 duloxetine 60 mg capsule,delayed 60 mg PO DAILY #60 caps 09/02/23 release oxycodone 5 mg tablet 5 mg PO Q8H PRN pain #7 tabs 09/07/23 Allergies Allergy/AdvReac Type Severity Reaction Status Date / Time Penicillins Allergy Depression Verified 09/07/23 17:29 ketorolac [From Toradol] AdvReac Intermediate Rash Verified 09/07/23 17:29 tramadol AdvReac Mild Hives Verified 09/07/23 18:06 Review of Systems <Isidra Stark PA-C - Last Filed: 09/07/23 18:54> Review of Systems ROS Unobtainable: All systems reviewed & are unremarkable except as noted in HPI and below Patient History <Isidra Stark PA-C - Last Filed: 09/07/23 18:54> Medical History Erectile dysfunction Axillary adenitis Low back pain Myofascial pain Thoracic back pain Lumbar radiculopathy Hip pain Allergies Anxiety ADHD Knee pain Fractures Chronic back pain Herpes (~2013) Chicken pox Surgical History History of removal of skin mole Family History Mother Prediabetes Kidney stones Gout Breast cancer Arthritis Grandfather Diabetes mellitus History of heart disease Grandmother Diabetes mellitus Parkinson's disease Social History Smoking Status: Current every day smoker Smoking Status: Current every day smoker tobacco type: cigarettes alcohol intake frequency: 0-2 drinks per day Substance Use Type: does not use Exam <Isidra Stark PA-C - Last Filed: 09/07/23 18:54> Narrative Exam Narrative: GENERAL: 37 year old patient appears stated age. Well-developed patient, in moderate distress. Appears stiff and hesitant to move. NEURO: AOx3. HEAD: Atraumatic. Normocephalic. EYES: Pupils equal round and reactive. Extraocular motions intact. No scleral icterus. No injection or drainage. ENT: Nose without bleeding or purulent drainage. Airway patent. RESPIRATORY: No increased work of breathing SPINE: Diffuse tenderness to palpation over the low back and SI joints. Left slightly more tender than right. Patient is able to ambulate slowly. Strength in lower extremities intact. EXTREMITIES: No edema or joint tenderness. SKIN: No rash or erythema of visible areas Initial Vital Signs Initial Vital Signs: Vital Signs Temperature 98 F 09/07/23 18:04 Pulse Rate 85 09/07/23 18:04 Respiratory Rate 17 09/07/23 18:04 Blood Pressure 131/72 09/07/23 18:04 Pulse Oximetry 99 09/07/23 18:04 Oxygen Delivery Method Room Air 09/07/23 18:04 <Renny Garvin DO - Last Filed: 09/07/23 19:25> Initial Vital Signs Initial Vital Signs: Vital Signs Temperature 98 F 09/07/23 18:04 Pulse Rate 85 09/07/23 18:04 Respiratory Rate 17 09/07/23 18:04 Blood Pressure 131/72 09/07/23 18:04 Pulse Oximetry 99 09/07/23 18:04 Oxygen Delivery Method Room Air 09/07/23 18:04 Course <Isidra Stark PA-C - Last Filed: 09/07/23 18:54> Orders Ordered: Discontinued Medications Oxycodone/Acetaminophen (Oxycodone/Acetaminophen 5/325 Tablet) 1 tab PO NOW ONE Stop: 09/07/23 18:34 Last Admin: 09/07/23 18:56 Dose: 1 tab Documented By: NEIL Oxycodone/Acetaminophen (Oxycodone/Apap 5/325 Prepack) 1 bottle MISC DIRECTED ONE Stop: 09/07/23 18:39 Last Admin: 09/07/23 18:56 Dose: 1 bottle Documented By: NEIL Vital Signs Vital signs: Vital Signs - 8 hr 09/07/23 18:04 Temperature 98 F Pulse Rate 85 Respiratory Rate 17 Blood Pressure 131/72 Pulse Oximetry 99 Oxygen Delivery Method Room Air <DO Zeyad Givens Last Filed: 09/07/23 19:25> Orders Ordered: Discontinued Medications Oxycodone/Acetaminophen (Oxycodone/Acetaminophen 5/325 Tablet) 1 tab PO NOW ONE Stop: 09/07/23 18:34 Last Admin: 09/07/23 18:56 Dose: 1 tab Documented By: SB Oxycodone/Acetaminophen (Oxycodone/Apap 5/325 Prepack) 1 bottle MISC DIRECTED ONE Stop: 09/07/23 18:39 Last Admin: 09/07/23 18:56 Dose: 1 bottle Documented By: NEIL Vital Signs Vital signs: Vital Signs - 8 hr 09/07/23 18:04 Temperature 98 F Pulse Rate 85 Respiratory Rate 17 Blood Pressure 131/72 Pulse Oximetry 99 Oxygen Delivery Method Room Air MDM - Back Pain/Injury <Isidra Stark PA-C - Last Filed: 09/07/23 18:54> MDM Narrative Medical decision making narrative: Multiple etiologies for patient's symptoms considered including, but not limited to: Cauda equina, epidural abscess, hematoma, herniated disc, muscular pain Patient with acute flare of chronic low back pain, which was previously stable before his kids jumped on the last night. He denies any red flags for cauda equina or risk factors for epidural abscess or hematoma. Discussed safe use of opiate medications. We will give patient a prepack of oxycodone as well as a few more pills tomorrow with the pharmacy and he will follow up with Dr. Hansen's clinic on Saturday. No indication for x-rays or other imaging today. Also discussed increasing Robaxin dose, he currently takes 500 mg b.i.d., and a higher dose (1000 mg b.i.d.-t.i.d.) may help him during this acute flare. Also encouraged staying active, gentle stretching, applying ice. Return precautions advised. Patient's symptoms improved over duration of stay with above-stated therapies. Findings and discharge diagnosis discussed with patient/family followed by verbalization of understanding Return precautions discussed with patient/family whom verbalize understanding of diagnosis and plan Discharge Plan Departure Patient Disposition: Home Clinical Impression: Acute back pain with radiculopathy Chronic back pain Qualifiers: Back pain location: low back pain Back pain laterality: bilateral Sciatica presence: unspecified whether sciatica present Qualified Code(s): M54.50 - Low back pain, unspecified Acute back pain Qualifiers: Back pain location: low back pain Back pain laterality: bilateral Sciatica presence: with sciatica Sciatica laterality: sciatica of right side Qualified Code(s): M54.41 - Lumbago with sciatica, right side Instructions: DI for Back Pain With Sciatica Activity Restrictions/Additional Instructions: *You have been diagnosed with acute exacerbation of chronic low back pain. I would advise you to increase your dose of methocarbamol, which is a muscle relaxer. Your current dose is 500 mg per tab twice a day. It is safe for you to take 2 tablets 3 times a day. Try this and see if it helps. I have also prescribed you a short course of stronger opiate pain medication. You were given several doses from the emergency room because the pharmacy is closed and a few more doses to supervisor volunteer services tomorrow. Please call your primary care office on Saturday morning and let them know what is going on and request follow-up. If you develop any fever, chills, weakness in your legs cause, lack of bowel or bladder control, or numbness in your groin, please return to the emergency room immediately. You have been prescribed a short course of narcotic medications. These are potentially dangerous and addictive medications that should be used carefully. While on these medications you cannot drive or operate heavy machinery. Do not drink alcohol or use other sedative medications while you are taking this medication. Additionally, you cannot sign legal documents or perform any duties such as this. Many people get constipated on narcotic medications so it would be advisable to discuss stool softeners with the pharmacist when you supervisor volunteer services your prescription. Please understand that we cannot provide further refills of narcotics or controlled substances through the ED and your pain management will need to be through your Primary Care Provider. *What to do: *Please continue to take your regular medications as directed. [x ] New medication prescriptions sent to your pharmacy: [facility] [ ] New medication written as a paper prescription [ ] No new medications given *Please follow up with your primary care provider in 2-3 days, call for an appointment. Let them know you were seen in the Emergency Department and that we ask that you be seen in follow up. We will electronically transmit a record of today's note if your PCP is in our system *If you do not have a primary care provider please contact the [facility] Resource line at [phone]. They will ask some questions about your medical history and help get you set up with a doctor in the community. *Return to Emergency Department if you should have any new, worsening or concerning symptoms, such as [fever greater than 101 F, shaking chills, worsening pain, persistent vomiting or other concerning symptoms]. Prescriptions: New oxycodone 5 mg tablet 5 mg PO Q8H PRN (Reason: pain) Qty: 7 0RF No Action rosuvastatin 20 mg tablet 20 mg PO QPM Qty: 90 3RF valacyclovir 1 gram tablet 1,000 mg PO DAILY Qty: 90 3RF hydroxyzine HCl 50 mg tablet 100 mg PO BEDTIME PRN (Reason: insomnia) Qty: 180 3RF methocarbamol 500 mg tablet 500 mg PO BID Qty: 60 0RF duloxetine 60 mg capsule,delayed release(DR/EC) 60 mg PO DAILY Qty: 60 0RF sildenafil 100 mg tablet 100 mg PO DAILY PRN (Reason: sexual activity) Qty: 30 2RF Rx Instructions: administer 30 minutes to 4 hours before activity acetaminophen-codeine 300-30 mg tablet 1 tab PO BID PRN (Reason: pain) Qty: 60 1RF oxaprozin 600 mg tablet 600 mg PO DAILY Qty: 30 2RF pregabalin [Lyrica] 25 mg capsule 25 mg PO BID Qty: 60 2RF Referrals: Royal Hansen DO [Primary Care Provider] - Stand Alone Forms: Patient Portal/[facility] ED Sign-out <Renny Garvin DO - Last Filed: 09/07/23 19:25> [facility] Dr Garvin Co-Sign Statement: I was available for consultation during this patient's emergency department visit. This chart is signed by myself for administrative purposes only. I did not have direct contact with this patient during this visit. They were seen independently by the APC.
[2023-09-07] MEDS: OXYCODONE/ACETAMINOPHEN 5/325 TABLET 1 TAB PO (18:56)
[2023-09-07] MEDS: OXYCODONE/APAP 5/325 PREPACK 1 BOTTLE MISC (18:56)
== END 2023-09-07 18:51 | disposition home or self-care (01) ==
PROVIDERS: Emergency Provider Physician Assistant; Family Provider Family Medicine; PCP Family Medicine
DX: M54.16 Radiculopathy, lumbar region (principal); M54.41 Lumbago with sciatica, right side
CPT/HCPCS: 99283

== ENCOUNTER → 2025-06-03 08:36 | Outpatient (CLI) | payer OTHER, SELFPAY ==
--- NOTE | 2025-06-03 08:40 | DI.RAD.S_ITS ---
PROCEDURE: XR HAND RT MIN 3V
== END ==
LOC: RAD 08:39
PROVIDERS: PCP Family Medicine; Referring Provider Family Medicine; Visit Provider Family Medicine
DX: S62.604A Fracture of unspecified phalanx of right ring finger, initial encounter for closed fracture (principal); S61.219A Laceration without foreign body of unspecified finger without damage to nail, initial encounter; X58.XXXA Exposure to other specified factors, initial encounter
CPT/HCPCS: 73130